=== PATIENT | female | born 2000 | race African-American/Black ===

== ENCOUNTER 2021-07-16 11:28 | Emergency (ER) | payer OTHER, SELFPAY ==
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
[2021-07-16 11:57] VITALS: BP 114/65; PULSE 75; RESP 18; TEMP 37; O2SAT 99; BMI 31.3
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
== END 2021-07-16 14:32 | disposition home or self-care (01) ==
PROVIDERS: Emergency Provider Emergency Medicine
DX: M25.562 Pain in left knee (principal)
CPT/HCPCS: 73564; 99283; 99284